=== PATIENT | male | born 1955 | race Two or more races ===

== ENCOUNTER 2020-10-29 15:53 | Inpatient (IN) | payer BC ==
[~2020-10-29] VITALS: Ht 172.7 cm; Wt 91.2 kg
[2020-10-29 16:48] LABS: BASOPHILS % 0.9 % (0.0-2.0); EOSINOPHILS % 0.1 % (0.0-5.0); HEMATOCRIT. 29.8 % (42.0-52.0); HEMOGLOBIN. 9.7 g/dL (14.0-18.0); LYMPHOCYTES % 17.6 % (20.0-50.0); MEAN CORPUSCULAR VOLUME 92.2 fL (80.0-94.0); MEAN PLATELET VOLUME 7.5 fl (7.4-10.4); MONOCYTES % 3.2 % (2.0-8.0); NEUTROPHILS % 78.2 % (40.0-76.0); PLATELET 436 x1000/uL (130-400); RED BLOOD CELL COUNT 3.24 mill/uL (4.7-6.1); RED CELL DISTRIBUTION WIDTH 16.1 % (11.6-14.6)
[2020-10-29 16:55] LABS: CHLORIDE 110 mEq/L (98-107)
[2020-10-29] MEDS ORDERED: ALBUTEROL (0.5%) 2.5MG/0.5ML NEB HHN ONE (18:00)
[2020-10-29] MEDS ORDERED: INSULIN REGULAR (HUMULIN R) 300UNITS/3ML VIAL IV NR (18:00)
[2020-10-29] MEDS ORDERED: DEXTROSE 50% WATER 50ML SYRINGE IV NR (18:00)
[2020-10-29] MEDS ORDERED: SODIUM POLYSTYRENE SULFONATE 15 G/60 ML BOT PO NR (18:00)
[2020-10-29] MEDS ORDERED: SODIUM BICARBONATE 8.4% 1 MEQ/ML 50ML SYR IV NR (18:00)
[2020-10-29] MEDS ORDERED: FUROSEMIDE 20MG/2ML VIAL IVP ONE (18:15)
[2020-10-29] MEDS ORDERED: CALCIUM CHLORIDE 1,000 MG in DEXT 5% WATER 90 ML IV NR (18:30)
[2020-10-29] MEDS ORDERED: MORPHINE SULFATE 4 MG/ML CPJ (NOT FOR IM USE) IV ONE (19:45)
[2020-10-29] MEDS ORDERED: FUROSEMIDE 100MG/10ML VIAL IVP NR (22:00)
[2020-10-29] MEDS ORDERED: CLONIDINE 0.1MG TABLET PO PRN (22:30)
[2020-10-29] MEDS ORDERED: ACETAMINOPHEN 650MG/20.3ML UDC GT PRN ×2 (22:30)
[2020-10-29] MEDS ORDERED: ACETAMINOPHEN 325MG TABLET PO PRN (22:30)
[2020-10-29 23:42] VITALS: BP 131/85
[2020-10-30] VITALS (9 sets, daily range): BP systolic 100–125; BP diastolic 18–82
[2020-10-30] MEDS: ENOXAPARIN 30MG/0.3ML SYR SUBCUT SCH ×2 (01:07→21:02)
[2020-10-30] MEDS: ACETAMINOPHEN 325MG TABLET PO PRN ×2 (01:08→18:00)
[2020-10-30] MEDS ORDERED: TRAZ-251 PO (03:19)
[2020-10-30] MEDS ORDERED: HYDR-4005 PO (03:19)
[2020-10-30] MEDS ORDERED: CARV6.2548 PO (03:19)
[2020-10-30] MEDS ORDERED: LISI10TA26 PO (03:19)
[2020-10-30] MEDS ORDERED: BUPR-46 PO (03:19)
[2020-10-30] MEDS ORDERED: ALBU90AE INH (03:19)
[2020-10-30] MEDS ORDERED: PANT40TA51 PO (03:19)
[2020-10-30] MEDS ORDERED: FLUT1BLS3 INH (03:19)
[2020-10-30] MEDS ORDERED: MELA10TA SL (03:19)
[2020-10-30] MEDS ORDERED: ALLO100T PO (03:19)
[2020-10-30] MEDS ORDERED: ASPI-1406 PO (03:19)
[2020-10-30] MEDS ORDERED: ALBU2.5V13 NEB (03:19)
[2020-10-30 07:25] LABS: BASOPHILS % 0.6 % (0.0-2.0); EOSINOPHILS % 0.3 % (0.0-5.0); HEMATOCRIT. 26.6 % (42.0-52.0); HEMOGLOBIN. 8.7 g/dL (14.0-18.0); LYMPHOCYTES % 13.3 % (20.0-50.0); MEAN CORPUSCULAR HEMOGLOBIN 30.5 pg (28.0-32.0); MEAN CORPUSCULAR VOLUME 92.9 fL (80.0-94.0); MEAN PLATELET VOLUME 8.1 fl (7.4-10.4); MONOCYTES % 1.9 % (2.0-8.0); NEUTROPHILS % 83.9 % (40.0-76.0); PLATELET 289 x1000/uL (130-400); RED BLOOD CELL COUNT 2.86 mill/uL (4.7-6.1); RED CELL DISTRIBUTION WIDTH 15.9 % (11.6-14.6)
[2020-10-30 07:35] LABS: CHLORIDE 110 mEq/L (98-107)
[2020-10-30 07:50] LABS: PHOSPHORUS 5.9 mg/dL (2.5-4.9)
[2020-10-30 07:51] LABS: CREATINE KINASE 522 IU/L (39-308); CREATINE KINASE MB FRACTION 9.5 ng/mL (0.5-3.6); HDL CHOLESTEROL 36 mg/dL (40-59); LDL CHOLESTEROL 49 mg/dL (5-100)
[2020-10-30] MEDS ORDERED: FUROSEMIDE 40MG/4ML VIAL IV SCH (09:00)
[2020-10-30 15:30] LABS: INR 1.4; PARTIAL THROMBOPLASTIN TIME 25.9 sec (23.4-31.0); PROTHROMBIN TIME 15.1 sec (9.6-11.0)
[2020-10-30 15:37] LABS: CREATINE KINASE MB FRACTION 7.7 ng/mL (0.5-3.6)
[2020-10-30 15:54] LABS: CLARITY URINE CLEAR (CLEAR); COLOR URINE YELLOW (YELLOW); KETONES URINE NEGATIVE (NEGATIVE); LEUKOCYTE ESTERASE URINE NEGATIVE (NEGATIVE); NITRITE URINE NEGATIVE (NEGATIVE); OCCULT BLOOD URINE TRACE (NEGATIVE); PROTEIN URINE TRACE (NEGATIVE); SPECIFIC GRAVITY URINE 1.014 (1.005-1.030)
[2020-10-30] MEDS ORDERED: ALBUTEROL (0.083%) 2.5MG/3ML NEB HHN PRN (16:15)
[2020-10-30 16:22] LABS: *AMPHETAMINES SCREEN URINE NEGATIVE (NEGATIVE); *BARBITURATES SCREEN URINE NEGATIVE (NEGATIVE); *BENZODIAZEPINES SCREEN URINE NEGATIVE (NEGATIVE); *COCAINE SCREEN URINE NEGATIVE (NEGATIVE); METHADONE URINE SCREEN NEGATIVE (NEGATIVE); OPIATES URINE SCREEN PRESUMTIVE POSITIVE (NEGATIVE); PHENCYCLIDINE URINE SCREEN NEGATIVE (NEGATIVE)
[2020-10-30 16:23] LABS: CANNABINOID URINE SCREEN NEGATIVE (NEGATIVE)
[2020-10-30 16:28] LABS: BG BASE EXCESS 0.7 mmol/L (-2.0-2.0); BG CARBOXYHEMOGLOBIN 0.2 % (0.5-1.5); BG DEOXYHEMOGLOBIN 0.6 % (0.0-5.0); BG FRACTION INSPIRED OXYGEN 100; BG HCO3 ACT 25.6 mmol/L (22.0-26.0); BG METHEMOGLOBIN 0.6 % (0.0-1.5); BG OXYGEN SATURATION 99.4 % (92.0-98.5); BG OXYHEMOGLOBIN 98.6 % (94.0-97.0); BG PCO2 42.5 mmHg (35.0-45.0); BG PH 7.398 (7.350-7.450); BG PO2 425.7 mmHg (75.0-100.0); BG SAMPLE SITE RIGHT BRACHIAL; BG VENT MODE MASK - BIPAP
[2020-10-30 16:39] LABS: HEPATITIS B SURFACE ANTIGEN NEGATIVE
[2020-10-30 17:07] LABS: HEPATITIS A AB IGM NEGATIVE (NEGATIVE)
[2020-10-30] MEDS: METHYLPREDNISOLONE SOD SUCC 40 MG/ML VIAL IV SCH (18:00)
[2020-10-30] MEDS: CEFTRIAXONE 1,000 MG in DEXTROSE 5% WATER 50 ML IV SCH (18:00)
[2020-10-30] MEDS: IPRATROPIUM/ALBUTEROL 0.5-3(2.5)MG/3ML NEB HHN SCH (20:31)
[2020-10-31] VITALS (12 sets, daily range): BP systolic 102–133; BP diastolic 48–84
[2020-10-31] MEDS: METHYLPREDNISOLONE SOD SUCC 40 MG/ML VIAL IV SCH ×3 (01:14→17:26)
[2020-10-31] MEDS: IPRATROPIUM/ALBUTEROL 0.5-3(2.5)MG/3ML NEB HHN SCH ×5 (01:17→15:24)
[2020-10-31 05:45] LABS: HEMATOCRIT. 28.7 % (42.0-52.0); HEMOGLOBIN. 9.2 g/dL (14.0-18.0); MEAN CORPUSCULAR HEMOGLOBIN 29.8 pg (28.0-32.0); MEAN PLATELET VOLUME 8.3 fl (7.4-10.4); PLATELET 262 x1000/uL (130-400); RED BLOOD CELL COUNT 3.09 mill/uL (4.7-6.1); RED CELL DISTRIBUTION WIDTH 15.4 % (11.6-14.6)
[2020-10-31 05:54] LABS: CHLORIDE 107 mEq/L (98-107)
[2020-10-31 06:05] LABS: PHOSPHORUS 5.3 mg/dL (2.5-4.9)
[2020-10-31 06:06] LABS: CREATINE KINASE 196 IU/L (39-308)
[2020-10-31 16:39] LABS: T4 FREE 1.19 ng/dL (0.76-1.46)
[2020-10-31] MEDS: CEFTRIAXONE 1,000 MG in DEXTROSE 5% WATER 50 ML IV SCH (20:50)
[2020-10-31] MEDS: CARVEDILOL 3.125 MG TABLET PO SCH (20:50)
[2020-10-31] MEDS: ENOXAPARIN 30MG/0.3ML SYR SUBCUT SCH (20:50)
[2020-10-31 22:30] LABS: PLATELET ESTIMATE NORMAL
[2020-11-01] VITALS (12 sets, daily range): BP systolic 109–173; BP diastolic 63–99
[2020-11-01] MEDS: METHYLPREDNISOLONE SOD SUCC 40 MG/ML VIAL IV SCH ×3 (00:47→17:27)
[2020-11-01 07:16] LABS: HEMATOCRIT. 29.5 % (42.0-52.0); HEMOGLOBIN. 9.5 g/dL (14.0-18.0); MEAN CORPUSCULAR HEMOGLOBIN 30.3 pg (28.0-32.0); MEAN CORPUSCULAR VOLUME 93.6 fL (80.0-94.0); MEAN PLATELET VOLUME 8.9 fl (7.4-10.4); PLATELET 274 x1000/uL (130-400); RED BLOOD CELL COUNT 3.15 mill/uL (4.7-6.1); RED CELL DISTRIBUTION WIDTH 16.1 % (11.6-14.6)
[2020-11-01 07:28] LABS: PHOSPHORUS 3.3 mg/dL (2.5-4.9)
[2020-11-01] MEDS ORDERED: LOSARTAN POTASSIUM 25 MG TABLET PO SCH (09:00)
[2020-11-01] MEDS: CARVEDILOL 3.125 MG TABLET PO SCH ×2 (09:03→20:52)
[2020-11-01] MEDS: IPRATROPIUM/ALBUTEROL 0.5-3(2.5)MG/3ML NEB HHN SCH ×4 (09:33→21:26)
[2020-11-01] MEDS: ACETYLCYSTEINE 200MG/ML 20% VIAL 4ML PO SCH ×2 (09:34→21:27)
[2020-11-01 12:11] LABS: BG BASE EXCESS 1.8 mmol/L (-2.0-2.0); BG CARBOXYHEMOGLOBIN 0.3 % (0.5-1.5); BG DEOXYHEMOGLOBIN 6.4 % (0.0-5.0); BG HCO3 ACT 25.6 mmol/L (22.0-26.0); BG METHEMOGLOBIN 0.1 % (0.0-1.5); BG OXYGEN SATURATION 93.6 % (92.0-98.5); BG OXYHEMOGLOBIN 93.2 % (94.0-97.0); BG PCO2 37.4 mmHg (35.0-45.0); BG PH 7.454 (7.350-7.450); BG PO2 70.1 mmHg (75.0-100.0); BG SAMPLE SITE RIGHT RADIAL; BG TOTAL HEMOGLOBIN 10.1 g/dL (12.0-18.0); BG VENT MODE ROOM AIR
[2020-11-01] MEDS: POLYETHYLENE GLYCOL 3350 (17GM) 1 DOSE PACK PO SCH (12:35)
[2020-11-01] MEDS: DOCUSATE SODIUM 100MG CAPSULE PO SCH (17:28)
[2020-11-01] MEDS: CEFTRIAXONE 1,000 MG in DEXTROSE 5% WATER 50 ML IV SCH (17:28)
[2020-11-01] MEDS: ACETAMINOPHEN 325MG TABLET PO PRN (17:28)
[2020-11-01 17:32] LABS: PLATELET ESTIMATE NORMAL
[2020-11-01] MEDS: LACTULOSE 20G/30ML UDC PO SCH (20:51)
[2020-11-01] MEDS: ENOXAPARIN 30MG/0.3ML SYR SUBCUT SCH (20:52)
[2020-11-01] MEDS: SENNOSIDES/DOCUSATE SOD 8.6/50MG TABLET PO SCH (20:53)
[2020-11-02] VITALS (11 sets, daily range): BP systolic 113–149; BP diastolic 63–94
[2020-11-02] MEDS: IPRATROPIUM/ALBUTEROL 0.5-3(2.5)MG/3ML NEB HHN SCH ×7 (00:35→21:23)
[2020-11-02] MEDS: METHYLPREDNISOLONE SOD SUCC 40 MG/ML VIAL IV SCH ×2 (04:35→17:34)
[2020-11-02 06:14] LABS: CHLORIDE 108 mEq/L (98-107)
[2020-11-02 06:29] LABS: PHOSPHORUS 3.8 mg/dL (2.5-4.9)
[2020-11-02 06:32] LABS: HEMATOCRIT. 28.6 % (42.0-52.0); HEMOGLOBIN. 9.2 g/dL (14.0-18.0); MEAN CORPUSCULAR VOLUME 92.6 fL (80.0-94.0); MEAN PLATELET VOLUME 8.9 fl (7.4-10.4); PLATELET 283 x1000/uL (130-400); RED BLOOD CELL COUNT 3.09 mill/uL (4.7-6.1)
[2020-11-02] MEDS ORDERED: LOSARTAN POTASSIUM 25 MG TABLET PO SCH (09:00)
[2020-11-02] MEDS: DOCUSATE SODIUM 100MG CAPSULE PO SCH ×2 (11:19→17:34)
[2020-11-02] MEDS: POLYETHYLENE GLYCOL 3350 (17GM) 1 DOSE PACK PO SCH (11:20)
[2020-11-02] MEDS: CARVEDILOL 3.125 MG TABLET PO SCH ×2 (11:20→21:23)
[2020-11-02] MEDS: HYDRALAZINE HCL 25MG TABLET PO SCH ×2 (11:20→21:24)
[2020-11-02] MEDS ORDERED: NALOXONE HCL 0.4MG/ML VIAL IV PRN (13:00)
[2020-11-02] MEDS: FUROSEMIDE 40MG TABLET PO SCH (13:01)
[2020-11-02 13:57] LABS: PLATELET ESTIMATE NORMAL
[2020-11-02] MEDS: CEFTRIAXONE 1,000 MG in DEXTROSE 5% WATER 50 ML IV SCH (17:34)
[2020-11-02] MEDS: ENOXAPARIN 30MG/0.3ML SYR SUBCUT SCH (21:21)
[2020-11-02] MEDS: DIPHENHYDRAMINE 50MG/ML VIAL IV PRN (21:21)
[2020-11-02] MEDS: ACETYLCYSTEINE 200MG/ML 20% VIAL 4ML PO SCH (21:23)
[2020-11-02] MEDS: LACTULOSE 20G/30ML UDC PO SCH (21:23)
[2020-11-02] MEDS: SENNOSIDES/DOCUSATE SOD 8.6/50MG TABLET PO SCH (21:23)
[2020-11-03] VITALS (15 sets, daily range): BP systolic 110–149; BP diastolic 58–95
[2020-11-03] MEDS: IPRATROPIUM/ALBUTEROL 0.5-3(2.5)MG/3ML NEB HHN SCH ×6 (01:23→21:11)
[2020-11-03] MEDS: DIPHENHYDRAMINE 50MG/ML VIAL IV PRN ×2 (01:59→21:03)
[2020-11-03] MEDS: HYDROCODONE/ACETAMINOPHEN 5/325MG TABLET PO PRN ×3 (04:47→21:03)
[2020-11-03 07:28] LABS: HEMOGLOBIN. 9.8 g/dL (14.0-18.0); MEAN CORPUSCULAR HEMOGLOBIN 29.7 pg (28.0-32.0); MEAN CORPUSCULAR VOLUME 91.3 fL (80.0-94.0); MEAN PLATELET VOLUME 8.5 fl (7.4-10.4); PLATELET 306 x1000/uL (130-400); RED BLOOD CELL COUNT 3.29 mill/uL (4.7-6.1); RED CELL DISTRIBUTION WIDTH 15.6 % (11.6-14.6)
[2020-11-03 07:47] LABS: PHOSPHORUS 3.5 mg/dL (2.5-4.9)
[2020-11-03 08:48] LABS: NUCLEATED RED BLOOD CELLS 1 /100 WBC; PLATELET ESTIMATE NORMAL
[2020-11-03] MEDS: DOCUSATE SODIUM 100MG CAPSULE PO SCH ×2 (09:00→17:00)
[2020-11-03] MEDS: POLYETHYLENE GLYCOL 3350 (17GM) 1 DOSE PACK PO SCH (09:00)
[2020-11-03] MEDS: ACETYLCYSTEINE 200MG/ML 20% VIAL 4ML PO SCH (09:03)
[2020-11-03] MEDS: METHYLPREDNISOLONE SOD SUCC 40 MG/ML VIAL IV SCH (09:33)
[2020-11-03] MEDS: HYDRALAZINE HCL 25MG TABLET PO SCH ×2 (09:34→20:57)
[2020-11-03] MEDS: CARVEDILOL 3.125 MG TABLET PO SCH (09:34)
[2020-11-03] MEDS: FUROSEMIDE 40MG TABLET PO SCH (09:40)
[2020-11-03] MEDS ORDERED: GUAIFENESIN 200MG/10ML SUGAR FREE UDC PO PRN (10:30)
[2020-11-03] MEDS ORDERED: FUROSEMIDE 40MG/4ML VIAL IVP SCH (12:00)
[2020-11-03] MEDS ORDERED: HYDR-4134 PO (15:41)
[2020-11-03] MEDS ORDERED: POLY17PO3 PO (15:41)
[2020-11-03] MEDS ORDERED: FURO10VI3 IVP (15:41)
[2020-11-03] MEDS ORDERED: ALBU2.5V13 HHN (15:41)
[2020-11-03] MEDS ORDERED: ASPI-1160 PO (15:41)
[2020-11-03] MEDS ORDERED: IPRA3AMP9 HHN (15:41)
[2020-11-03] MEDS ORDERED: METH40VI35 IV (15:41)
[2020-11-03] MEDS: CEFTRIAXONE 1,000 MG in DEXTROSE 5% WATER 50 ML IV SCH (17:45)
[2020-11-03] MEDS: FUROSEMIDE 40MG/4ML VIAL IVP SCH (17:45)
[2020-11-03] MEDS: LACTULOSE 20G/30ML UDC PO SCH (20:57)
[2020-11-03] MEDS: ENOXAPARIN 30MG/0.3ML SYR SUBCUT SCH (20:58)
[2020-11-03] MEDS: SENNOSIDES/DOCUSATE SOD 8.6/50MG TABLET PO SCH (20:58)
[2020-11-03] MEDS: CARVEDILOL 6.25 MG TABLET PO SCH (21:04)
[2020-11-04] VITALS (12 sets, daily range): BP systolic 85–160; BP diastolic 29–97
[2020-11-04] MEDS: IPRATROPIUM/ALBUTEROL 0.5-3(2.5)MG/3ML NEB HHN SCH ×6 (00:07→21:05)
[2020-11-04] MEDS: FUROSEMIDE 40MG/4ML VIAL IVP SCH ×2 (05:38→17:52)
[2020-11-04] MEDS: DIPHENHYDRAMINE 50MG/ML VIAL IV PRN ×3 (07:19→23:16)
[2020-11-04] MEDS: HYDROCODONE/ACETAMINOPHEN 5/325MG TABLET PO PRN ×3 (07:20→23:17)
[2020-11-04 07:52] LABS: BASOPHILS % 0.1 % (0.0-2.0); HEMATOCRIT. 30.5 % (42.0-52.0); HEMOGLOBIN. 10.5 g/dL (14.0-18.0); LYMPHOCYTES % 7.8 % (20.0-50.0); MEAN CORPUSCULAR VOLUME 93.1 fL (80.0-94.0); MEAN PLATELET VOLUME 8.5 fl (7.4-10.4); NEUTROPHILS % 87.1 % (40.0-76.0); PLATELET 301 x1000/uL (130-400); RED BLOOD CELL COUNT 3.28 mill/uL (4.7-6.1); RED CELL DISTRIBUTION WIDTH 15.6 % (11.6-14.6)
[2020-11-04 08:51] LABS: BG BASE EXCESS -0.5 mmol/L (-2.0-2.0); BG CARBOXYHEMOGLOBIN 0.1 % (0.5-1.5); BG DEOXYHEMOGLOBIN 2.2 % (0.0-5.0); BG FRACTION INSPIRED OXYGEN 32; BG HCO3 ACT 23.8 mmol/L (22.0-26.0); BG METHEMOGLOBIN 0.3 % (0.0-1.5); BG OXYGEN SATURATION 97.8 % (92.0-98.5); BG OXYHEMOGLOBIN 97.4 % (94.0-97.0); BG PCO2 37.4 mmHg (35.0-45.0); BG PH 7.421 (7.350-7.450); BG PO2 111.1 mmHg (75.0-100.0); BG SAMPLE SITE RIGHT RADIAL; BG VENT MODE NASAL CANNULA
[2020-11-04] MEDS: ASPIRIN 81MG TABLET PO SCH (09:00)
[2020-11-04] MEDS: METHYLPREDNISOLONE SOD SUCC 40 MG/ML VIAL IV SCH (09:38)
[2020-11-04] MEDS: POLYETHYLENE GLYCOL 3350 (17GM) 1 DOSE PACK PO SCH (09:38)
[2020-11-04] MEDS: CARVEDILOL 6.25 MG TABLET PO SCH ×2 (09:38→21:42)
[2020-11-04] MEDS: ENOXAPARIN 30MG/0.3ML SYR SUBCUT SCH ×2 (09:39→21:44)
[2020-11-04] MEDS: HYDRALAZINE HCL 50MG TABLET PO SCH ×2 (09:39→17:52)
[2020-11-04] MEDS: DOCUSATE SODIUM 100MG CAPSULE PO SCH ×2 (09:39→17:52)
[2020-11-04] MEDS: ONDANSETRON HCL 4MG/2ML INJ IV PRN (18:42)
[2020-11-04] MEDS: SENNOSIDES/DOCUSATE SOD 8.6/50MG TABLET PO SCH (21:41)
[2020-11-04] MEDS: LACTULOSE 20G/30ML UDC PO SCH (21:41)
[2020-11-05] VITALS (11 sets, daily range): BP systolic 119–136; BP diastolic 44–86
[2020-11-05] MEDS ORDERED: IPRATROPIUM/ALBUTEROL 0.5-3(2.5)MG/3ML NEB ONE (00:14)
[2020-11-05] MEDS: FUROSEMIDE 40MG/4ML VIAL IVP SCH ×2 (07:12→17:00)
[2020-11-05 07:50] LABS: BASOPHILS % 0.2 % (0.0-2.0); EOSINOPHILS % 0.2 % (0.0-5.0); HEMOGLOBIN. 10.8 g/dL (14.0-18.0); LYMPHOCYTES % 12.1 % (20.0-50.0); MEAN CORPUSCULAR HEMOGLOBIN 30.8 pg (28.0-32.0); MEAN CORPUSCULAR VOLUME 94.3 fL (80.0-94.0); MEAN PLATELET VOLUME 8.9 fl (7.4-10.4); MONOCYTES % 4.8 % (2.0-8.0); NEUTROPHILS % 82.7 % (40.0-76.0); PLATELET 311 x1000/uL (130-400); RED CELL DISTRIBUTION WIDTH 16.1 % (11.6-14.6)
[2020-11-05 08:05] LABS: CHLORIDE 109 mEq/L (98-107)
[2020-11-05 08:22] LABS: PHOSPHORUS 4.7 mg/dL (2.5-4.9)
[2020-11-05] MEDS: ENOXAPARIN 30MG/0.3ML SYR SUBCUT SCH ×2 (08:39→20:46)
[2020-11-05] MEDS: IPRATROPIUM/ALBUTEROL 0.5-3(2.5)MG/3ML NEB HHN SCH ×2 (08:40→14:40)
[2020-11-05] MEDS: POLYETHYLENE GLYCOL 3350 (17GM) 1 DOSE PACK PO SCH (08:40)
[2020-11-05] MEDS: DOCUSATE SODIUM 100MG CAPSULE PO SCH ×2 (08:42→16:59)
[2020-11-05] MEDS: HYDRALAZINE HCL 50MG TABLET PO SCH ×2 (08:42→16:59)
[2020-11-05] MEDS: ASPIRIN 81MG TABLET PO SCH (08:42)
[2020-11-05] MEDS: CARVEDILOL 6.25 MG TABLET PO SCH ×2 (08:42→20:46)
[2020-11-05] MEDS ORDERED: METHYLPREDNISOLONE SOD SUCC 40 MG/ML VIAL IV SCH (09:00)
[2020-11-05] MEDS ORDERED: SODIUM POLYSTYRENE SULFONATE 15 G/60 ML BOT PO NR (12:00)
[2020-11-05] MEDS ORDERED: COR6 MT (17:08)
[2020-11-05] MEDS ORDERED: FURO-151 MT (17:08)
[2020-11-05] MEDS ORDERED: ALBU05 NEB (17:08)
[2020-11-05] MEDS ORDERED: P50 MT (17:08)
[2020-11-05] MEDS ORDERED: ASPI-1079 PO (17:08)
[2020-11-05] MEDS ORDERED: PULM50 NEB (17:08)
[2020-11-05] MEDS ORDERED: HYDR-4135 MT (17:08)
[2020-11-05] MEDS: ONDANSETRON HCL 4MG/2ML INJ IV PRN (17:14)
[2020-11-05] MEDS: DIPHENHYDRAMINE 50MG/ML VIAL IV PRN ×2 (17:14→21:55)
[2020-11-05] MEDS: HYDROCODONE/ACETAMINOPHEN 5/325MG TABLET PO PRN ×2 (17:16→21:56)
[2020-11-05] MEDS: SENNOSIDES/DOCUSATE SOD 8.6/50MG TABLET PO SCH (20:46)
[2020-11-05] MEDS: LACTULOSE 20G/30ML UDC PO SCH (20:46)
[2020-11-06] VITALS (7 sets, daily range): BP systolic 115–137; BP diastolic 42–99
[2020-11-06 05:33] LABS: CHLORIDE 109 mEq/L (98-107)
[2020-11-06 05:40] LABS: PHOSPHORUS 4.5 mg/dL (2.5-4.9)
[2020-11-06 05:44] LABS: CREATINE KINASE 28 IU/L (39-308)
[2020-11-06 06:17] LABS: BASOPHILS % 0.2 % (0.0-2.0); EOSINOPHILS % 0.4 % (0.0-5.0); HEMATOCRIT. 34.2 % (42.0-52.0); LYMPHOCYTES % 12.3 % (20.0-50.0); MEAN CORPUSCULAR HEMOGLOBIN 29.5 pg (28.0-32.0); MEAN CORPUSCULAR VOLUME 92.2 fL (80.0-94.0); MEAN PLATELET VOLUME 8.9 fl (7.4-10.4); MONOCYTES % 5.3 % (2.0-8.0); NEUTROPHILS % 81.8 % (40.0-76.0); PLATELET 356 x1000/uL (130-400); RED BLOOD CELL COUNT 3.71 mill/uL (4.7-6.1); RED CELL DISTRIBUTION WIDTH 16.2 % (11.6-14.6)
[2020-11-06] MEDS: FUROSEMIDE 40MG/4ML VIAL IVP SCH (06:23)
[2020-11-06] MEDS: ENOXAPARIN 30MG/0.3ML SYR SUBCUT SCH (08:02)
[2020-11-06] MEDS: POLYETHYLENE GLYCOL 3350 (17GM) 1 DOSE PACK PO SCH (08:02)
[2020-11-06] MEDS: ASPIRIN 81MG TABLET PO SCH (08:09)
[2020-11-06] MEDS: DOCUSATE SODIUM 100MG CAPSULE PO SCH (08:09)
[2020-11-06] MEDS: CARVEDILOL 6.25 MG TABLET PO SCH (08:09)
[2020-11-06] MEDS: HYDRALAZINE HCL 50MG TABLET PO SCH (08:09)
[2020-11-06] MEDS: HYDROCODONE/ACETAMINOPHEN 5/325MG TABLET PO PRN (08:11)
[2020-11-06] MEDS ORDERED: METHYLPREDNISOLONE SOD SUCC 40 MG/ML VIAL IV SCH (09:00)
[2020-11-06] MEDS: IPRATROPIUM/ALBUTEROL 0.5-3(2.5)MG/3ML NEB HHN SCH (09:30)
== END 2020-11-06 13:39 | disposition home or self-care (01) | DRG 291 ==
LOC: ER 15:53 → MICUSO 20:04 → 8WST 23:19 → 5EST 10-30 12:06
PROVIDERS: ADMIT Family Medicine; ATTEND Family Medicine
DX: I13.0 Hypertensive heart and chronic kidney disease with heart failure and stage 1 through stage 4 chronic kidney disease, or unspecified chronic kidney disease (principal); I50.23 Acute on chronic systolic (congestive) heart failure; J96.21 Acute and chronic respiratory failure with hypoxia; E43 Unspecified severe protein-calorie malnutrition; K72.00 Acute and subacute hepatic failure without coma; K83.1 Obstruction of bile duct; J18.9 Pneumonia, unspecified organism; J44.1 Chronic obstructive pulmonary disease with (acute) exacerbation; N17.9 Acute kidney failure, unspecified; M62.82 Rhabdomyolysis; D68.9 Coagulation defect, unspecified; C34.90 Malignant neoplasm of unspecified part of unspecified bronchus or lung; J44.0 Chronic obstructive pulmonary disease with (acute) lower respiratory infection; I42.9 Cardiomyopathy, unspecified; I27.20 Pulmonary hypertension, unspecified; D64.9 Anemia, unspecified; E87.5 Hyperkalemia; K21.9 Gastro-esophageal reflux disease without esophagitis; F41.9 Anxiety disorder, unspecified; G47.00 Insomnia, unspecified; G89.29 Other chronic pain; M54.5 Low back pain; R47.81 Slurred speech; K59.09 Other constipation; M10.9 Gout, unspecified; N18.30 Chronic kidney disease, stage 3 unspecified; Z20.822 Contact with and (suspected) exposure to COVID-19; I95.9 Hypotension, unspecified; T45.1X5A Adverse effect of antineoplastic and immunosuppressive drugs, initial encounter; Z87.891 Personal history of nicotine dependence; Z79.899 Other long term (current) drug therapy; Z82.49 Family history of ischemic heart disease and other diseases of the circulatory system; Z79.82 Long term (current) use of aspirin; Z86.73 Personal history of transient ischemic attack (TIA), and cerebral infarction without residual deficits; Z91.02 Food additives allergy status; Z99.81 Dependence on supplemental oxygen; Z68.30 Body mass index [BMI] 30.0-30.9, adult; Y92.89 Other specified places as the place of occurrence of the external cause
CPT/HCPCS: 36415; 36600; 70551; 71045; 76700; 76770; 78227; 78582; 80048; 80053; 80061; 80076; 80305; 80307; 81003; 82140; 82248; 82375; 82550; 82553; 82570; 82805; 83036; 83735; 83880; 84100; 84132; 84156; 84439; 84443; 84484; 85025; 85379; 86705; 86709; 86803; 87340; 87426; 93005; 93306; 93880; 93970; 94618; 94640; 94660; 97162; 99291; A9537; A9558; J0696; J1200; J1650; J1815; J1940; J2270; J2405; J2920; J3490; J7060; J7608

== ENCOUNTER 2021-01-28 20:20 | Inpatient (IN) | payer BC, MEDICARE ==
[~2021-01-28] VITALS: Ht 175.3 cm; Wt 71.2 kg
[~2021-01-28 20:20] MED LIST: ALBU05 NEB; ALBU2.5V13 HHN; ALBU2.5V13 NEB; ALBU90AE INH; ALLO100T PO; ASPI-1079 PO; ASPI-1160 PO; ASPI-1406 PO; BUPR-46 PO; CARV6.2548 PO; COR6 MT; FLUT1BLS3 INH; FURO-151 MT; FURO10VI3 IVP; HYDR-4005 PO; HYDR-4134 PO; HYDR-4135 MT; IPRA3AMP9 HHN; LISI10TA26 PO; MELA10TA SL; METH40VI35 IV; P50 MT; PANT40TA51 PO; POLY17PO3 PO; PULM50 NEB; TRAZ-251 PO
[2021-01-28] MEDS ORDERED: SODIUM CHLORIDE 0.9% 1,000 ML IV ONE ×2 (20:45→23:00)
[2021-01-28 21:40] LABS: BASOPHILS % 0.7 % (0.0-2.0); EOSINOPHILS % 0.1 % (0.0-5.0); HEMATOCRIT. 28.6 % (42.0-52.0); HEMOGLOBIN. 9.2 g/dL (14.0-18.0); LYMPHOCYTES % 13.5 % (20.0-50.0); MEAN CORPUSCULAR HEMOGLOBIN 28.1 pg (28.0-32.0); MEAN CORPUSCULAR VOLUME 87.3 fL (80.0-94.0); MEAN PLATELET VOLUME 8.8 fl (7.4-10.4); NEUTROPHILS % 80.7 % (40.0-76.0); PLATELET 628 x1000/uL (130-400); RED BLOOD CELL COUNT 3.28 mill/uL (4.7-6.1); RED CELL DISTRIBUTION WIDTH 17.6 % (11.6-14.6)
[2021-01-28 21:49] LABS: CHLORIDE 105 mEq/L (98-107)
[2021-01-28] MEDS ORDERED: AZITHROMYCIN 500MG/250ML 250 ML IV ONE (22:30)
[2021-01-28] MEDS ORDERED: CEFTRIAXONE 1 G PREMIX 50 ML IV ONE (22:30)
[2021-01-28 22:38] LABS: BG BASE EXCESS -4.1 mmol/L (-2.0-2.0); BG CARBOXYHEMOGLOBIN 0.3 % (0.5-1.5); BG DEOXYHEMOGLOBIN 0.3 % (0.0-5.0); BG FRACTION INSPIRED OXYGEN 100; BG HCO3 ACT 19.6 mmol/L (22.0-26.0); BG METHEMOGLOBIN 0.2 % (0.0-1.5); BG OXYGEN SATURATION 99.7 % (92.0-98.5); BG OXYHEMOGLOBIN 99.2 % (94.0-97.0); BG PCO2 31.2 mmHg (35.0-45.0); BG PH 7.417 (7.350-7.450); BG PO2 432.9 mmHg (75.0-100.0); BG SAMPLE SITE LEFT RADIAL; BG TOTAL HEMOGLOBIN 9.8 g/dL (12.0-18.0); BG VENT MODE MASK - NRB
[2021-01-28] MEDS ORDERED: CALCIUM CHLORIDE 1GM/10ML SYR IV NR (22:45)
[2021-01-28] MEDS ORDERED: SODIUM POLYSTYRENE SULFONATE 15 G/60 ML BOT PO NR (22:45)
[2021-01-28] MEDS ORDERED: INSULIN REGULAR (HUMULIN R) 300UNITS/3ML VIAL IV NR (22:45)
[2021-01-28] MEDS ORDERED: DEXTROSE 50% WATER 50ML SYRINGE IV ONE (22:45)
[2021-01-29] MEDS ORDERED: IPRATROPIUM/ALBUTEROL 0.5-3(2.5)MG/3ML NEB HHN PRN ×2 (03:15→13:15)
[2021-01-29] MEDS ORDERED: ONDANSETRON HCL 4MG/2ML INJ IV PRN (03:15)
[2021-01-29] MEDS ORDERED: ACETAMINOPHEN 325MG TABLET PO PRN ×2 (03:15)
[2021-01-29] MEDS ORDERED: NOREPINEPHRINE 8MG/250ML PMX 250ML IV PRN (03:15)
[2021-01-29] MEDS: DEXT 5%/0.45% NACL 1000ML 1,000 ML IV SCH (03:44)
[2021-01-29] MEDS: ENOXAPARIN 30MG/0.3ML SYR SUBCUT SCH (09:00)
[2021-01-29] MEDS ORDERED: CEFTRIAXONE 1 G PREMIX 50 ML IV SCH (12:45)
[2021-01-29] MEDS: BUDESONIDE 0.5MG/2ML NEB HHN SCH (13:15)
[2021-01-29] MEDS: CEFEPIME 2,000 MG in DEXTROSE 5% WATER 50 ML IV SCH (14:22)
[2021-01-29] MEDS: IPRATROPIUM/ALBUTEROL 0.5-3(2.5)MG/3ML NEB HHN SCH ×2 (16:00→20:04)
[2021-01-29] MEDS ORDERED: CEFTRIAXONE 1,000 MG in DEXTROSE 5% WATER 50 ML IV SCH (22:00)
[2021-01-30] MEDS: DEXT 5%/0.45% NACL 1000ML 1,000 ML IV SCH (00:01)
[2021-01-30] MEDS: IPRATROPIUM/ALBUTEROL 0.5-3(2.5)MG/3ML NEB HHN SCH ×6 (00:50→21:05)
[2021-01-30] MEDS: CEFEPIME 2,000 MG in DEXTROSE 5% WATER 50 ML IV SCH ×2 (02:22→13:30)
[2021-01-30] MEDS: BUDESONIDE 0.5MG/2ML NEB HHN SCH ×2 (09:00→21:05)
[2021-01-30] MEDS: ENOXAPARIN 30MG/0.3ML SYR SUBCUT SCH (10:11)
[2021-01-30 10:56] LABS: CLARITY URINE CLEAR (CLEAR); COLOR URINE YELLOW (YELLOW); KETONES URINE NEGATIVE (NEGATIVE); LEUKOCYTE ESTERASE URINE NEGATIVE (NEGATIVE); NITRITE URINE NEGATIVE (NEGATIVE); OCCULT BLOOD URINE NEGATIVE (NEGATIVE); PH URINE 5.5 (4.5-8.0); PROTEIN URINE 1+ (NEGATIVE); SPECIFIC GRAVITY URINE 1.018 (1.005-1.030); UROBILINOGEN URINE 0.2 E.U./dL (0.2-1.0)
[2021-01-30 11:43] LABS: BASOPHILS % 0.4 % (0.0-2.0); EOSINOPHILS % 0.2 % (0.0-5.0); HEMATOCRIT. 27.1 % (42.0-52.0); HEMOGLOBIN. 8.6 g/dL (14.0-18.0); LYMPHOCYTES % 13.2 % (20.0-50.0); MEAN CORPUSCULAR VOLUME 88.5 fL (80.0-94.0); MEAN PLATELET VOLUME 8.5 fl (7.4-10.4); MONOCYTES % 5.9 % (2.0-8.0); NEUTROPHILS % 80.3 % (40.0-76.0); PLATELET 479 x1000/uL (130-400); RED BLOOD CELL COUNT 3.06 mill/uL (4.7-6.1); RED CELL DISTRIBUTION WIDTH 16.7 % (11.6-14.6)
[2021-01-30 11:55] LABS: PHOSPHORUS 2.5 mg/dL (2.5-4.9)
[2021-01-30 15:00] VITALS: BP 134/67
[2021-01-30 17:44] VITALS: BP 120/81
[2021-01-30] MEDS ORDERED: POTASSIUM CHLORIDE INJ 40 MEQ in DEXT 5% WATER 500 ML IV ONE (19:45)
[2021-01-30 20:00] VITALS: BP 119/63
[2021-01-30] MEDS: MEROPENEM 1,000 MG in SODIUM CHLORIDE 0.9% 100 ML IV SCH (20:32)
[2021-01-30] MEDS: METOPROLOL TARTRATE 25MG TABLET PO SCH (20:34)
[2021-01-30] MEDS: TRAZODONE HCL 50MG TABLET PO PRN (20:35)
[2021-01-30] MEDS: HYDROCODONE/APAP 7.5/325MG 1 TAB TABLET PO PRN (20:35)
[2021-01-30] MEDS: CYCLOBENZAPRINE 10MG TABLET PO PRN (20:35)
[2021-01-30 22:00] VITALS: BP 119/68
[2021-01-30] MEDS: KCL 20MEQ/100ML PREMIX 100 ML IV SCH ×2 (23:37→23:39)
[2021-01-31] VITALS: BP 110/38
[2021-01-31] MEDS: IPRATROPIUM/ALBUTEROL 0.5-3(2.5)MG/3ML NEB HHN SCH ×6 (01:43→20:59)
[2021-01-31] MEDS: HYDROCODONE/APAP 7.5/325MG 1 TAB TABLET PO PRN ×3 (03:44→20:49)
[2021-01-31] MEDS: MEROPENEM 1,000 MG in SODIUM CHLORIDE 0.9% 100 ML IV SCH ×3 (03:44→20:47)
[2021-01-31 04:00] VITALS: BP 123/71
[2021-01-31 05:45] LABS: CHLORIDE 116 mEq/L (98-107)
[2021-01-31 06:03] LABS: PHOSPHORUS 1.8 mg/dL (2.5-4.9)
[2021-01-31 06:35] LABS: BASOPHILS % 0.4 % (0.0-2.0); EOSINOPHILS % 0.3 % (0.0-5.0); HEMATOCRIT. 24.2 % (42.0-52.0); HEMOGLOBIN. 7.9 g/dL (14.0-18.0); LYMPHOCYTES % 14.5 % (20.0-50.0); MEAN CORPUSCULAR HEMOGLOBIN 29.1 pg (28.0-32.0); MEAN CORPUSCULAR VOLUME 88.9 fL (80.0-94.0); MEAN PLATELET VOLUME 8.4 fl (7.4-10.4); MONOCYTES % 7.9 % (2.0-8.0); NEUTROPHILS % 76.9 % (40.0-76.0); PLATELET 433 x1000/uL (130-400); RED BLOOD CELL COUNT 2.72 mill/uL (4.7-6.1); RED CELL DISTRIBUTION WIDTH 16.3 % (11.6-14.6)
[2021-01-31] MEDS ORDERED: FUROSEMIDE 20MG/2ML VIAL IVP NR (07:45)
[2021-01-31 08:00] VITALS: BP 123/71
[2021-01-31] MEDS: METOPROLOL TARTRATE 25MG TABLET PO SCH (08:14)
[2021-01-31] MEDS: ENOXAPARIN 40MG/0.4ML SYR SUBCUT SCH (08:15)
[2021-01-31] MEDS: BUDESONIDE 0.5MG/2ML NEB HHN SCH ×2 (09:00→20:59)
[2021-01-31 12:00] VITALS: BP 114/62
[2021-01-31 16:00] VITALS: BP 159/90
[2021-01-31] MEDS ORDERED: DIGOXIN 500MCG/2ML AMP IV NR (16:36)
[2021-01-31] MEDS: CYCLOBENZAPRINE 10MG TABLET PO PRN (17:34)
[2021-01-31 20:00] VITALS: BP 126/74
[2021-01-31] MEDS ORDERED: LEVO750T46 MT ×2 (20:17)
[2021-01-31] MEDS: CARVEDILOL 6.25 MG TABLET PO SCH (20:48)
[2021-01-31] MEDS: TRAZODONE HCL 50MG TABLET PO PRN (20:58)
[2021-01-31] MEDS ORDERED: METOPROLOL TARTRATE 25MG TABLET PO SCH (21:00)
[2021-02-01] VITALS (7 sets, daily range): BP systolic 115–138; BP diastolic 68–80
[2021-02-01] MEDS: IPRATROPIUM/ALBUTEROL 0.5-3(2.5)MG/3ML NEB HHN SCH ×5 (01:33→20:09)
[2021-02-01] MEDS: MEROPENEM 1,000 MG in SODIUM CHLORIDE 0.9% 100 ML IV SCH ×3 (05:41→21:40)
[2021-02-01 06:28] LABS: BASOPHILS % 0.3 % (0.0-2.0); EOSINOPHILS % 0.4 % (0.0-5.0); HEMOGLOBIN. 7.7 g/dL (14.0-18.0); LYMPHOCYTES % 14.7 % (20.0-50.0); MEAN CORPUSCULAR HEMOGLOBIN 28.4 pg (28.0-32.0); MEAN CORPUSCULAR VOLUME 88.2 fL (80.0-94.0); MEAN PLATELET VOLUME 8.2 fl (7.4-10.4); MONOCYTES % 6.5 % (2.0-8.0); NEUTROPHILS % 78.1 % (40.0-76.0); PLATELET 481 x1000/uL (130-400); RED BLOOD CELL COUNT 2.71 mill/uL (4.7-6.1); RED CELL DISTRIBUTION WIDTH 16.2 % (11.6-14.6)
[2021-02-01 06:45] LABS: CHLORIDE 115 mEq/L (98-107)
[2021-02-01 07:02] LABS: PHOSPHORUS 2.1 mg/dL (2.5-4.9)
[2021-02-01] MEDS ORDERED: METOPROLOL SUCCINATE 50MG ER TABLET PO SCH (09:00)
[2021-02-01] MEDS: BUDESONIDE 0.5MG/2ML NEB HHN SCH (09:13)
[2021-02-01] MEDS: ENOXAPARIN 40MG/0.4ML SYR SUBCUT SCH (09:48)
[2021-02-01] MEDS: FUROSEMIDE 40MG/4ML VIAL IVP SCH (09:48)
[2021-02-01] MEDS: CARVEDILOL 6.25 MG TABLET PO SCH ×2 (09:49→21:40)
[2021-02-01] MEDS: HYDROCODONE/APAP 7.5/325MG 1 TAB TABLET PO PRN ×2 (09:58→21:54)
[2021-02-01 10:13] LABS: BG BASE EXCESS -4.7 mmol/L (-2.0-2.0); BG CARBOXYHEMOGLOBIN 0.9 % (0.5-1.5); BG DEOXYHEMOGLOBIN 3.4 % (0.0-5.0); BG FRACTION INSPIRED OXYGEN 36; BG HCO3 ACT 19.1 mmol/L (22.0-26.0); BG METHEMOGLOBIN 0.1 % (0.0-1.5); BG OXYGEN SATURATION 96.6 % (92.0-98.5); BG OXYHEMOGLOBIN 95.6 % (94.0-97.0); BG PCO2 30.3 mmHg (35.0-45.0); BG PH 7.418 (7.350-7.450); BG PO2 88.9 mmHg (75.0-100.0); BG SAMPLE SITE RIGHT RADIAL; BG TOTAL HEMOGLOBIN 8.5 g/dL (12.0-18.0); BG VENT MODE NASAL CANNULA
[2021-02-01] MEDS ORDERED: SODIUM PHOS,M-BASIC-D-BASIC 15 MM in DEXT 5% WATER 245 ML IV SCH (11:00)
[2021-02-01] MEDS: ACETYLCYSTEINE 100MG/ML 10% VIAL 4ML INH SCH (15:54)
[2021-02-01] MEDS: TRAZODONE HCL 50MG TABLET PO PRN (21:54)
[2021-02-01] MEDS: CYCLOBENZAPRINE 10MG TABLET PO PRN (21:57)
[2021-02-02] VITALS (7 sets, daily range): BP systolic 110–140; BP diastolic 58–82
[2021-02-02] MEDS: IPRATROPIUM/ALBUTEROL 0.5-3(2.5)MG/3ML NEB HHN SCH ×5 (00:17→16:00)
[2021-02-02] MEDS: ACETYLCYSTEINE 100MG/ML 10% VIAL 4ML INH SCH ×3 (00:17→16:00)
[2021-02-02] MEDS: MEROPENEM 1,000 MG in SODIUM CHLORIDE 0.9% 100 ML IV SCH ×2 (05:14→12:21)
[2021-02-02 06:16] LABS: BASOPHILS % 0.6 % (0.0-2.0); EOSINOPHILS % 0.7 % (0.0-5.0); HEMATOCRIT. 26.9 % (42.0-52.0); HEMOGLOBIN. 8.6 g/dL (14.0-18.0); MEAN CORPUSCULAR HEMOGLOBIN 28.5 pg (28.0-32.0); MEAN CORPUSCULAR VOLUME 88.8 fL (80.0-94.0); MEAN PLATELET VOLUME 8.1 fl (7.4-10.4); MONOCYTES % 6.4 % (2.0-8.0); NEUTROPHILS % 74.3 % (40.0-76.0); PLATELET 513 x1000/uL (130-400); RED BLOOD CELL COUNT 3.03 mill/uL (4.7-6.1); RED CELL DISTRIBUTION WIDTH 16.4 % (11.6-14.6)
[2021-02-02 06:29] LABS: CHLORIDE 114 mEq/L (98-107)
[2021-02-02] MEDS: ENOXAPARIN 40MG/0.4ML SYR SUBCUT SCH (08:27)
[2021-02-02] MEDS: FUROSEMIDE 40MG/4ML VIAL IVP SCH (08:27)
[2021-02-02] MEDS: CYCLOBENZAPRINE 10MG TABLET PO PRN (08:41)
[2021-02-02] MEDS: HYDROCODONE/APAP 7.5/325MG 1 TAB TABLET PO PRN ×2 (08:41→18:31)
[2021-02-02] MEDS ORDERED: CARVEDILOL 12.5MG TABLET PO SCH ×2 (09:00→21:00)
[2021-02-02] MEDS ORDERED: LEVO500T89 MT (14:07)
[2021-02-02] MEDS ORDERED: FURO-151 MT (14:07)
[2021-02-02] MEDS ORDERED: NALOXONE HCL 0.4MG/ML VIAL IV PRN (14:45)
== END 2021-02-02 18:45 | disposition home or self-care (01) | DRG 871 ==
LOC: ER 20:20 → MICUSO 22:53 → 3WST 01-30 07:34 → 5EST 01-30 15:25
PROVIDERS: ADMIT Internal Medicine; ATTEND Internal Medicine
PROC: 5A09357 Assistance with Respiratory Ventilation, Less than 24 Consecutive Hours, Continuous Positive Airway Pressure (ICD-10-PCS; principal; 2021-01-28)
PROC: 5A09357 Assistance with Respiratory Ventilation, Less than 24 Consecutive Hours, Continuous Positive Airway Pressure (ICD-10-PCS; 2021-01-29)
DX: A41.51 Sepsis due to Escherichia coli [E. coli] (principal); E43 Unspecified severe protein-calorie malnutrition; J96.21 Acute and chronic respiratory failure with hypoxia; R65.21 Severe sepsis with septic shock; I13.0 Hypertensive heart and chronic kidney disease with heart failure and stage 1 through stage 4 chronic kidney disease, or unspecified chronic kidney disease; I50.22 Chronic systolic (congestive) heart failure; N17.9 Acute kidney failure, unspecified; D64.9 Anemia, unspecified; D75.839 Thrombocytosis, unspecified; E78.5 Hyperlipidemia, unspecified; E87.5 Hyperkalemia; Z20.822 Contact with and (suspected) exposure to COVID-19; J43.9 Emphysema, unspecified; J47.9 Bronchiectasis, uncomplicated; F41.9 Anxiety disorder, unspecified; K21.9 Gastro-esophageal reflux disease without esophagitis; M10.9 Gout, unspecified; N18.30 Chronic kidney disease, stage 3 unspecified; Z82.49 Family history of ischemic heart disease and other diseases of the circulatory system; Z85.118 Personal history of other malignant neoplasm of bronchus and lung; Z99.81 Dependence on supplemental oxygen; Z91.018 Allergy to other foods
CPT/HCPCS: 36415; 36600; 71045; 71250; 76770; 78580; 80048; 80053; 81003; 82375; 82550; 82805; 83605; 83735; 83880; 84100; 84145; 84484; 85025; 87077; 87186; 87426; 93005; 93306; 93970; 94640; 99291; J0456; J0692; J0696; J1160; J1650; J1815; J1940; J2185; J3480; J3490; J7030; J7050; J7060; J7608; J7626